=== PATIENT | male | born 1945 | race Caucasian/White ===

== ENCOUNTER 2023-02-08 05:20 | Day surgery (SDC) | payer MEDICARE, BC ==
[~2023-02-08 05:20] MED LIST: Dextrose 5%-0.45% NaCl 1,000 ML IV SCH; Sodium Chloride 0.9% 10 ML Syringe FLUSH PRN; Sodium Chloride 0.9% 10 ML Syringe FLUSH SCH
[2023-02-08] MEDS ORDERED: fentaNYL 100 MCG/2 ML SDV IV ONE ×3 (05:21→06:31)
[2023-02-08] MEDS ORDERED: Midazolam 1 MG/ML 2 ML SDV IV ONE ×7 (05:21→06:43)
[2023-02-08] MEDS ORDERED: Dextrose 5%-0.45% NaCl 1,000 ML IV SCH (06:00)
[2023-02-08] MEDS ORDERED: fentaNYL 100 MCG/2 ML SDV ONE (06:17)
[2023-02-08] MEDS ORDERED: Midazolam 1 MG/ML 2 ML SDV ONE (06:17)
[2023-02-08 08:15] VITALS: BP 132/75; PULSE 62
== END 2023-02-08 08:00 | disposition home or self-care (01) ==
LOC: DL.ENDO 05:20
PROVIDERS: ATTEND Internal Medicine Gastroenterology
DX: I25.10 Atherosclerotic heart disease of native coronary artery without angina pectoris (principal); K64.8 Other hemorrhoids; E66.09 Other obesity due to excess calories; I10 Essential (primary) hypertension; E78.5 Hyperlipidemia, unspecified; E11.9 Type 2 diabetes mellitus without complications; C61 Malignant neoplasm of prostate; J30.9 Allergic rhinitis, unspecified; J33.9 Nasal polyp, unspecified; D64.9 Anemia, unspecified; K27.9 Peptic ulcer, site unspecified, unspecified as acute or chronic, without hemorrhage or perforation; Z68.32 Body mass index [BMI] 32.0-32.9, adult; K57.30 Diverticulosis of large intestine without perforation or abscess without bleeding; Z85.038 Personal history of other malignant neoplasm of large intestine; Z98.890 Other specified postprocedural states; Z90.89 Acquired absence of other organs; Z95.5 Presence of coronary angioplasty implant and graft; Z87.448 Personal history of other diseases of urinary system
CPT/HCPCS: G0105; J2250; J3010; J7042

== ENCOUNTER 2025-06-25 10:30 | Inpatient (IN) | payer MEDICARE, BC ==
[2025-06-25 10:58] LABS: BASOPHILS PERCENT AUTO 0.1 % (0.0-1.0); EOSINOPHILS PERCENT AUTO 0.1 % (1.0-3.0); LYMPHOCYTES PERCENT AUTO 8.4 % (20.5-50.1); MONOCYTES PERCENT AUTO 8.0 % (2-8); NEUTROPHILS PERCENT AUTO 83.4 % (42.2-75.2); PLATELET COUNT,PLT 165 10^3/uL (150-450); RED BLOOD CELL COUNT 3.03 10^6/uL (4.6-6.2); WHITE BLOOD CELL COUNT,WBC 9.0 10^3/uL (5.0-10.0)
[2025-06-25 11:34] LABS: B-TYPE NATRIURETIC PEPTIDE,BNP 316.0 pg/ml (0-100)
[2025-06-25 11:40] LABS: A/G RATIO 1.0; ALANINE AMINOTRANSFERASE,ALT 26.0 U/L (16-63); ASPARTATE AMNIOTRANSFERASE,AST 18.0 U/L (15-37); BILIRUBIN TOTAL 1.6 mg/dL (0.2-1.0); BLOOD UREA NITROGEN,BUN 26.0 mg/dL (7-18); CARBON DIOXIDE,CO2 23.0 mmol/L (21-32); CHLORIDE,CL 97.0 mmol/L (98-107); CREATININE 2.34 mg/dL (0.70-1.30); EST CRCL DRUG DOSING (CG) 25.56 mL/min; GLUCOSE RANDOM 168.0 mg/dL (70-99); POTASSIUM,K 4.1 mmol/L (3.5-5.1); PROTEIN TOTAL,TP 7.1 g/dL (6.4-8.2); SODIUM,NA 135.0 mmol/L (136-145)
[2025-06-25 11:43] LABS: ESTIMATED GFR 27.0 mL/min (>=60)
[2025-06-25 11:55] LABS: LACTIC ACID 2.5 mmol/L (0.4-2.0)
[2025-06-25] MEDS ORDERED: Lactated Ringers 500 ML IV ONE (12:01)
[2025-06-25 12:08] LABS: APPEARANCE,URINE SLIGHTLY CLOUDY (CLEAR); GLUCOSE,URINE 500 (NEGATIVE); OCCULT BLOOD,URINE MODERATE (NEGATIVE)
[2025-06-25] MEDS: Lactated Ringers 1,000 ML IV ONE (12:23)
[2025-06-25 12:24] LABS: EPITHELIAL CELLS,URINE FEW /HPF (NOT SEEN)
[2025-06-25] MEDS ORDERED: 50% Dextrose in Water 50 ML Syringe IVPUSH PRN ×2 (15:25→18:02)
[2025-06-25] MEDS: Lactulose Soln 10 GM/15 ML 30 ML UD Cup PO ONE (16:20)
[2025-06-25 16:54] LABS: BLOOD UREA NITROGEN,BUN 24.0 mg/dL (7-18); CARBON DIOXIDE,CO2 26.0 mmol/L (21-32); CHLORIDE,CL 97.0 mmol/L (98-107); CREATININE 2.03 mg/dL (0.70-1.30); EST CRCL DRUG DOSING (CG) 29.47 mL/min; GLUCOSE RANDOM 195.0 mg/dL (70-99); POTASSIUM,K 3.8 mmol/L (3.5-5.1); SODIUM,NA 135.0 mmol/L (136-145)
[2025-06-25 16:56] LABS: ESTIMATED GFR 32.0 mL/min (>=60)
[2025-06-25 16:58] LABS: IRON,FE 11.0 ug/dL (65-175); PERCENT FE SATURATION 4.0 % (20.0-50.0)
[2025-06-25 17:55] LABS: FOLIC ACID > 20.0 ng/mL (8.6-58.9)
[2025-06-25] MEDS: Insulin Regular, Human 100 Units/ML 10 ML Vial IV ONE (18:16)
[2025-06-25] MEDS: Isosorbide Mononitrate 60 MG Tab.ER PO SCH (20:48)
[2025-06-25] MEDS: Insulin Glarg,Human.Rec.Analog 100 Unit/ML 10 ML Vial SUBCUT SCH (20:55)
[2025-06-25] MEDS: Heparin Sodium 5,000 Units/ML Vial SUBCUT SCH (20:56)
[2025-06-25] MEDS: Furosemide 40 MG/4 ML VIAL IVPUSH ONE (22:00)
[2025-06-26 06:49] LABS: BASOPHILS PERCENT AUTO 0.2 % (0.0-1.0); EOSINOPHILS PERCENT AUTO 0.0 % (1.0-3.0); LYMPHOCYTES PERCENT AUTO 11.1 % (20.5-50.1); MONOCYTES PERCENT AUTO 9.5 % (2-8); NEUTROPHILS PERCENT AUTO 79.2 % (42.2-75.2); PLATELET COUNT,PLT 162 10^3/uL (150-450); RED BLOOD CELL COUNT 2.99 10^6/uL (4.6-6.2); WHITE BLOOD CELL COUNT,WBC 6.3 10^3/uL (5.0-10.0)
[2025-06-26 07:34] LABS: BLOOD UREA NITROGEN,BUN 26.0 mg/dL (7-18); CARBON DIOXIDE,CO2 29.0 mmol/L (21-32); CHLORIDE,CL 100.0 mmol/L (98-107); CREATININE 2.15 mg/dL (0.70-1.30); EST CRCL DRUG DOSING (CG) 27.82 mL/min; GLUCOSE RANDOM 143.0 mg/dL (70-99); POTASSIUM,K 4.1 mmol/L (3.5-5.1); SODIUM,NA 139.0 mmol/L (136-145)
[2025-06-26 07:37] LABS: ESTIMATED GFR 30.0 mL/min (>=60)
[2025-06-26] MEDS: Omeprazole 20 MG Cap.CR PO SCH (08:03)
[2025-06-26] MEDS: Tolterodine 2 MG Cap.ER PO SCH (08:04)
[2025-06-26] MEDS ORDERED: Non-Formulary Medication 1 Each (Mirabegron [Myrbetriq] 25 MG Tab.Er) PO SCH (09:00)
[2025-06-26] MEDS ORDERED: Non-Formulary Medication 1 Each (Solifenacin [Vesicare] 5 MG Tablet) PO SCH (09:00)
[2025-06-27 06:45] LABS: BASOPHILS PERCENT AUTO 0.4 % (0.0-1.0); EOSINOPHILS PERCENT AUTO 1.9 % (1.0-3.0); LYMPHOCYTES PERCENT AUTO 14.1 % (20.5-50.1); MONOCYTES PERCENT AUTO 8.4 % (2-8); NEUTROPHILS PERCENT AUTO 75.2 % (42.2-75.2); PLATELET COUNT,PLT 160 10^3/uL (150-450); RED BLOOD CELL COUNT 2.85 10^6/uL (4.6-6.2); WHITE BLOOD CELL COUNT,WBC 4.7 10^3/uL (5.0-10.0)
[2025-06-27 07:00] LABS: BLOOD UREA NITROGEN,BUN 28.0 mg/dL (7-18); CARBON DIOXIDE,CO2 29.0 mmol/L (21-32); CHLORIDE,CL 102.0 mmol/L (98-107); CREATININE 2.14 mg/dL (0.70-1.30); EST CRCL DRUG DOSING (CG) 27.95 mL/min; GLUCOSE RANDOM 112.0 mg/dL (70-99); POTASSIUM,K 3.5 mmol/L (3.5-5.1); SODIUM,NA 142.0 mmol/L (136-145)
[2025-06-27 07:03] LABS: ESTIMATED GFR 30.0 mL/min (>=60)
[2025-06-27] MEDS: Sodium Chloride 0.9% 10 ML Syringe FLUSH PRN (22:56)
[2025-06-28 11:16] LABS: BASOPHILS PERCENT AUTO 0.4 % (0.0-1.0); EOSINOPHILS PERCENT AUTO 4.5 % (1.0-3.0); LYMPHOCYTES PERCENT AUTO 20.0 % (20.5-50.1); MONOCYTES PERCENT AUTO 9.2 % (2-8); NEUTROPHILS PERCENT AUTO 65.9 % (42.2-75.2); PLATELET COUNT,PLT 202 10^3/uL (150-450); RED BLOOD CELL COUNT 2.91 10^6/uL (4.6-6.2); WHITE BLOOD CELL COUNT,WBC 5.4 10^3/uL (5.0-10.0)
[2025-06-28 18:55] VITALS: BP 157/87; PULSE 96
== END 2025-06-28 18:45 | DRG 872 ==
LOC: DL.ED 10:30 → DL.MS 13:33 → DL.ED 13:47
PROVIDERS: ADMIT Internal Medicine; ATTEND Internal Medicine
DX: A41.9 Sepsis, unspecified organism (principal); N17.9 Acute kidney failure, unspecified; J90 Pleural effusion, not elsewhere classified; N39.0 Urinary tract infection, site not specified; E87.20 Acidosis, unspecified; I38 Endocarditis, valve unspecified; J30.9 Allergic rhinitis, unspecified; H54.7 Unspecified visual loss; J18.9 Pneumonia, unspecified organism; I10 Essential (primary) hypertension; G47.30 Sleep apnea, unspecified; N40.0 Benign prostatic hyperplasia without lower urinary tract symptoms; E11.9 Type 2 diabetes mellitus without complications; E66.9 Obesity, unspecified; E86.0 Dehydration; G47.33 Obstructive sleep apnea (adult) (pediatric); E11.65 Type 2 diabetes mellitus with hyperglycemia; D50.9 Iron deficiency anemia, unspecified; I11.0 Hypertensive heart disease with heart failure; I50.9 Heart failure, unspecified; E78.00 Pure hypercholesterolemia, unspecified; I25.10 Atherosclerotic heart disease of native coronary artery without angina pectoris; Z79.82 Long term (current) use of aspirin; Z68.30 Body mass index [BMI] 30.0-30.9, adult; Z98.49 Cataract extraction status, unspecified eye; Z90.49 Acquired absence of other specified parts of digestive tract; Z85.828 Personal history of other malignant neoplasm of skin; Z79.899 Other long term (current) drug therapy; Z85.46 Personal history of malignant neoplasm of prostate; Z87.891 Personal history of nicotine dependence; Z98.890 Other specified postprocedural states; Z79.84 Long term (current) use of oral hypoglycemic drugs; Z88.8 Allergy status to other drugs, medicaments and biological substances; Z88.1 Allergy status to other antibiotic agents; Z91.041 Radiographic dye allergy status
CPT/HCPCS: 36415; 71045; 80053; 81001; 83605; 83880; 85025; 87040 ×2; 87077; 87086; 87088; 87186 ×2; 93005; 93010; 96361; 96374; 99284; 99285; A9270; J0696; J7120; 80048; 82272; 82607; 82746; 82947; 83540; 83550; 84145; 87070; 87205; 99232; 99233; 99239; J1644; J1815-GY; J1938; J2543; J7030; J7040; Q0138; U0002